=== PATIENT | female | born 1945 | race Caucasian/White ===

== ENCOUNTER 2023-11-16 11:57 | Emergency (ER) | payer MEDICARE, OTHER, SELFPAY ==
[2023-11-16] VITALS (34 sets, daily range): BP systolic 108–148; BP diastolic 53–86; PULSE 53–70; RESP 11–23; TEMP 36.5; O2SAT 82–99; BMI 25.8
--- NOTE | 2023-11-16 12:15 | EKG_ITS ---
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
--- NOTE | 2023-11-16 12:15 | DI.RAD.S_ITS ---
PROCEDURE: XR CHEST 1V INDICATIONS: chest pain TECHNIQUE: One view of the chest was acquired. COMPARISON: None. FINDINGS: Surgical changes and devices: None. Lungs and pleura: No dense consolidation or pleural effusion Low lung volumes Mediastinum: Normal heart size Bones and chest wall: Degenerative changes IMPRESSION: No acute radiographic abnormality. Low lung volumes. Limited single view study. Dictated by: Rodrigue Rae M.D. on 11/16/2023 at 13:36 Approved by: Rodrigue Rae M.D. on 11/16/2023 at 13:37
[2023-11-16 12:36] LABS: Hematocrit 29.9 % (36-46); Hemoglobin 9.6 g/dL (12.0-16.0); Mean Corpuscular HGB Conc 32.1 % (30-36); Mean Corpuscular Hemoglobin 30.1 PG (26-34); Mean Corpuscular Volume 93.6 fL (80-100); Platelet Count 157 X10^3/uL (150-400); Red Cell Distribution Width 16.4 % (11.6-14.8)
[2023-11-16 12:38] LABS: White Blood Cell Count 44.2 X10^3/uL (4.5-11.0)
[2023-11-16 12:39] LABS: Add Manual Diff / Slide Review YES
[2023-11-16 12:45] LABS: INR 1.1 (0.9-1.3); Prothrombin Time 12.6 SECONDS (9.4-12.5)
[2023-11-16 12:47] LABS: PTT Partial Thromboplastin Tim 39 SECONDS (25.1-36.5)
--- NOTE | 2023-11-16 12:51 | ED.FALL ---
HPI - Fall General Chief Complaint: Fall Stated Complaint: Syncopal Episode Time Seen by Provider: 11/16/23 12:05 Source: patient and EMS Mode of arrival: EMS History of Present Illness HPI Narrative: Patient is an 78-year-old female who arrives by EMS for evaluation of was initially described as a syncopal episode. Patient is visiting the local area. She stated that yesterday she spent quite a bit of time waiting in line for a [place] come in from [facility]. She stayed at a hotel last evening. He stated that for the past couple days she has had a upper respiratory tract infection like symptoms. No fevers. She states she was constipated. She recently had an extended course of Bactrim secondary to a unknown source of an infection that required her to be admitted to the hospital. Per report she did not check out of her hotel this morning. When the hotel staff came to check on her she had what appeared to be a presyncope/syncopal episode. She was found to be orthostatic by EMS. Received fluids. Upon my arrival she stated that she was feeling somewhat better. She denies chest pain, shortness of breath, lightheadedness. Prior to the event she was not having palpitations. Related Data Allergies Allergy/AdvReac Type Severity Reaction Status Date / Time Iodinated Contrast Media Allergy Intermediate Verified 11/16/23 12:55 Review of Systems Review of Systems ROS Unobtainable: All systems reviewed & are unremarkable except as noted in HPI and below Exam Initial Vital Signs Initial Vital Signs: Vital Signs Temperature 97.7 F 11/16/23 12:00 Pulse Rate 55 L 11/16/23 12:00 Respiratory Rate 16 11/16/23 12:00 Blood Pressure 115/56 L 11/16/23 12:00 Pulse Oximetry 96 11/16/23 12:00 Oxygen Delivery Method Room Air 11/16/23 12:00 Const General: cooperative, comfortable and No ill appearing [place] Head: normal to inspection and normocephalic Resp Effort & Inspection: normal respiratory effort Auscultation: clear to auscultation bilaterally Cardio Rate: regular rate Rhythm: regular rhythm GI Inspection: normal to inspection and non-distended Neuro General: patient alert, patient awake, patient oriented x3 and moves all extremities Extrem General: normal to inspection and capillary refill normal Course Orders Ordered: ED Orders 11/16/23 11:50 Lactate (Lactic Acid) Stat 11/16/23 11:58 Complete Blood Count AUTO DIFF Stat Comprehensive Metabolic Panel Stat Lipase Stat Magnesium Stat NT-proBNP (BNP-Adult 18+) Stat PTT Partial Thromboplastin Eris Stat Prothrombin Time INR Stat Troponin & CK Cardiac Panel Stat 11/16/23 12:15 XR chest 1V Stat EKG-12 Lead Stat 11/16/23 12:25 Respiratory Panel (Film Array) Stat 11/16/23 12:39 Urinalysis and Microscopic Stat Urine Culture Stat Discontinued Medications Sodium Chloride (Normal Saline 0.9%) 1,000 mls @ 1,000 mls/hr IV BOLUS ONE Stop: 11/16/23 13:50 Last Infusion: 11/16/23 14:12 Dose: Infused Documented By: Admin: 11/16/23 13:08 Dose: 1,000 mls/hr Documented By: BRANNON Sodium Biphosphate/Sodium Phosphate (Fleets Enema) 1 each WA NOW ONE Stop: 11/16/23 14:54 Last Admin: 11/16/23 16:18 Dose: 1 each Documented By: BRANNON Sodium Biphosphate/Sodium Phosphate (Fleets Enema) 1 each WA NOW ONE Stop: 11/16/23 17:23 Last Admin: 11/16/23 18:12 Dose: Not Given Documented By: BRANNON Vital Signs Vital signs: Vital Signs - 8 hr 11/16/23 12:00 11/16/23 12:12 11/16/23 12:15 Temperature 97.7 F Pulse Rate 55 L 56 L 56 L Respiratory Rate 16 18 15 Blood Pressure 115/56 L Pulse Oximetry 96 98 94 Oxygen Delivery Method Room Air 11/16/23 12:30 11/16/23 12:30 11/16/23 12:45 Temperature Pulse Rate 61 60 Respiratory Rate 17 Blood Pressure 108/62 Pulse Oximetry 98 Oxygen Delivery Method Room Air 11/16/23 13:00 11/16/23 13:01 11/16/23 13:01 Temperature Pulse Rate 58 L 59 L Respiratory Rate 17 21 Blood Pressure 113/53 L Pulse Oximetry 92 92 Oxygen Delivery Method 11/16/23 13:15 11/16/23 13:30 11/16/23 13:31 Temperature Pulse Rate 53 L 56 L Respiratory Rate 13 11 L Blood Pressure 134/63 Pulse Oximetry 94 97 Oxygen Delivery Method 11/16/23 13:31 11/16/23 13:45 11/16/23 14:00 Temperature Pulse Rate 55 L 55 L 55 L Respiratory Rate 12 12 12 Blood Pressure Pulse Oximetry 97 97 97 Oxygen Delivery Method 11/16/23 14:01 11/16/23 14:01 11/16/23 14:15 Temperature Pulse Rate 56 L 56 L Respiratory Rate 13 13 Blood Pressure 112/55 L Pulse Oximetry 97 97 Oxygen Delivery Method 11/16/23 14:22 11/16/23 14:22 11/16/23 14:31 Temperature Pulse Rate 56 L 57 L Respiratory Rate 19 Blood Pressure 125/62 Pulse Oximetry 92 Oxygen Delivery Method 11/16/23 14:31 11/16/23 14:45 11/16/23 15:00 Temperature Pulse Rate 53 L 58 L Respiratory Rate 16 21 Blood Pressure 120/58 L Pulse Oximetry 98 95 Oxygen Delivery Method 11/16/23 15:15 Temperature Pulse Rate 54 L Respiratory Rate 12 Blood Pressure Pulse Oximetry 97 Oxygen Delivery Method MDM - Fall Lab Data Attestation: I reviewed the patient's lab results. 11/16/23 11:58 11/16/23 11:58 Labs: Lab Results 11/16/23 11/16/23 11/16/23 Range/Units 11:50 11:58 12:25 WBC 44.2 H* (4.5-11.0) X10^3/uL RBC 3.20 L (4.0-5.2) X10^6/uL Hgb 9.6 L (12.0-16.0) g/dL Hct 29.9 L (36-46) % MCV 93.6 (80-100) fL MCH 30.1 (26-34) PG MCHC 32.1 (30-36) % RDW 16.4 H (11.6-14.8) % Plt Count 157 (150-400) X10^3/uL Neut % (Auto) Not Reportable Lymph % (Auto) Not Reportable [place] % (Auto) Not Reportable Eos % (Auto) Not Reportable Baso % (Auto) Not Reportable Lymph # (Auto) Not Reportable [place] # (Auto) Not Reportable Baso # (Auto) Not Reportable Total Counted 100 Seg Neutrophils % 2.0 L (38-70) % Lymphocytes % (Manual) 88.0 H (25-45) % Atypical Lymphs % 7.0 H ( - 0) % Monocytes % (Manual) 2.0 (2-11) % Eosinophils % (Manual) 1.0 L (2-4) % Neutrophils # (Manual) 884 L (0955-4344) /uL RBC Morphology Normal morphology PT 12.6 H (9.4-12.5) SECONDS INR 1.1 (0.9-1.3) APTT 39 H (25.1-36.5) SECONDS Sodium 130 L (137-145) mmol/L Potassium 4.3 (3.4-5.1) mmol/L Chloride 99 (98-107) mmol/L Carbon Dioxide 27 (22-32) mmol/L BUN 41 H (7-17) mg/dL Creatinine 1.22 H (0.52-1.04) mg/dL Estimated GFR 45 L (>60) mL/min BUN/Creatinine Ratio 33.6 H (6-22) Glucose 176 H (80-110) mg/dL Lactate 1.1 (0.7-2.1) mmol/L Calcium 8.4 (8.4-10.2) mg/dL Magnesium 1.9 (1.6-2.3) mg/dL Total Bilirubin 0.3 (0.2-1.3) mg/dL AST 35 (14-36) IU/L ALT 21 (<35) IU/L Alkaline Phosphatase 59 (38-126) U/L Total Creatine Kinase 101 (30-135) U/L Troponin I 0.012 (0.01-0.034) ng/mL NT-Pro-B Natriuret Pep 923 H (<450) pg/mL Total Protein 6.7 (6.3-8.2) g/dL Albumin 3.2 L (3.5-5.0) g/dL Globulin 3.5 (1.7-4.1) g/dL Albumin/Globulin Ratio 0.9 L (1.0-2.8) Lipase 62 (23-300) U/L Urine Color Urine Appearance Urine pH (4.5-8.0) Ur Specific [place] (1.000-1.035) Urine Protein (Negative) Urine Glucose (UA) (Negative) g/dL Urine Ketones (NEGATIVE) Urine Occult Blood (Negative) Urine Nitrate (Negative) Urine Bilirubin (NEGATIVE) Urine Urobilinogen (0.2) E.U./dL Ur Leukocyte Esterase (NEGATIVE) Urine RBC (0-5/HPF) Urine WBC (0-5/HPF) Ur Squamous Epith Cells (0-5/HPF) Urine Bacteria (None) Ur Culture Indicated? Vol Urine Centrifuged Chlamy pneumoniae PCR Not detected (Not Detect) Adenovirus (PCR) Not detected (Not Detect) B.parapertussis DNA PCR Not detected (Not Detecte) Coronavirus OC43 (PCR) Not detected (Not Detect) Coronavirus HKU1 (PCR) Not detected (Not Detect) Coronavirus 229E (PCR) Not detected (Not Detect) SARS-CoV-2 (PCR) Detected H (Not Detecte) Coronavirus NL63 (PCR) Not detected (Not Detect) Human Metapneumovir PCR Not detected (Not Detect) Influenza Type A (PCR) Not detected (Not Detect) Influenza Type B (PCR) Not detected (Not Detect) M. pneumoniae (PCR) Not detected (Not Detect) Parainfluenza 1 (PCR) Not detected (Not Detect) Parainfluenza 2 (PCR) Not detected (Not Detect) Parainfluenza 3 (PCR) Not detected (Not Detect) Parainfluenza 4 (PCR) Not detected (Not Detect) RSV (PCR) Not detected (Not Detect) Entero/Rhino (PCR) Not detected (Not Detect) 11/16/23 Range/Units 12:39 WBC (4.5-11.0) X10^3/uL RBC (4.0-5.2) X10^6/uL Hgb (12.0-16.0) g/dL Hct (36-46) % MCV (80-100) fL MCH (26-34) PG MCHC (30-36) % RDW (11.6-14.8) % Plt Count (150-400) X10^3/uL Neut % (Auto) Lymph % (Auto) [place] % (Auto) Eos % (Auto) Baso % (Auto) Lymph # (Auto) [place] # (Auto) Baso # (Auto) Total Counted Seg Neutrophils % (38-70) % Lymphocytes % (Manual) (25-45) % Atypical Lymphs % ( - 0) % Monocytes % (Manual) (2-11) % Eosinophils % (Manual) (2-4) % Neutrophils # (Manual) (5876-3247) /uL RBC Morphology PT (9.4-12.5) SECONDS INR (0.9-1.3) APTT (25.1-36.5) SECONDS Sodium (137-145) mmol/L Potassium (3.4-5.1) mmol/L Chloride (98-107) mmol/L Carbon Dioxide (22-32) mmol/L BUN (7-17) mg/dL Creatinine (0.52-1.04) mg/dL Estimated GFR (>60) mL/min BUN/Creatinine Ratio (6-22) Glucose (80-110) mg/dL Lactate (0.7-2.1) mmol/L Calcium (8.4-10.2) mg/dL Magnesium (1.6-2.3) mg/dL Total Bilirubin (0.2-1.3) mg/dL AST (14-36) IU/L ALT (<35) IU/L Alkaline Phosphatase (38-126) U/L Total Creatine Kinase (30-135) U/L Troponin I (0.01-0.034) ng/mL NT-Pro-B Natriuret Pep (<450) pg/mL Total Protein (6.3-8.2) g/dL Albumin (3.5-5.0) g/dL Globulin (1.7-4.1) g/dL Albumin/Globulin Ratio (1.0-2.8) Lipase (23-300) U/L Urine Color Yellow Urine Appearance Sl cloudy Urine pH 6.0 (4.5-8.0) Ur Specific [place] 1.020 (1.000-1.035) Urine Protein 1+ H (Negative) Urine Glucose (UA) Negative (Negative) g/dL Urine Ketones Negative (NEGATIVE) Urine Occult Blood 2+ H (Negative) Urine Nitrate Negative (Negative) Urine Bilirubin Negative (NEGATIVE) Urine Urobilinogen 0.2 (0.2) E.U./dL Ur Leukocyte Esterase 3+ H (NEGATIVE) Urine RBC 1-5/hpf (0-5/HPF) Urine WBC >100/hpf H (0-5/HPF) Ur Squamous Epith Cells 1-5 /hpf (0-5/HPF) Urine Bacteria Many (>30) H (None) Ur Culture Indicated? Specimen cultured Vol Urine Centrifuged 10ml (spun) Chlamy pneumoniae PCR (Not Detect) Adenovirus (PCR) (Not Detect) B.parapertussis DNA PCR (Not Detecte) Coronavirus OC43 (PCR) (Not Detect) Coronavirus HKU1 (PCR) (Not Detect) Coronavirus 229E (PCR) (Not Detect) SARS-CoV-2 (PCR) (Not Detecte) Coronavirus NL63 (PCR) (Not Detect) Human Metapneumovir PCR (Not Detect) Influenza Type A (PCR) (Not Detect) Influenza Type B (PCR) (Not Detect) M. pneumoniae (PCR) (Not Detect) Parainfluenza 1 (PCR) (Not Detect) Parainfluenza 2 (PCR) (Not Detect) Parainfluenza 3 (PCR) (Not Detect) Parainfluenza 4 (PCR) (Not Detect) RSV (PCR) (Not Detect) Entero/Rhino (PCR) (Not Detect) Imaging Data Chest x-ray: Radiologist's Impression: PROCEDURE: XR CHEST 1V INDICATIONS: chest pain TECHNIQUE: One view of the chest was acquired. COMPARISON: None. FINDINGS: Surgical changes and devices: None. Lungs and pleura: No dense consolidation or pleural effusion Low lung volumes Mediastinum: Normal heart size Bones and chest wall: Degenerative changes IMPRESSION: No acute radiographic abnormality. Low lung volumes. Limited single view study. ECG Data Attestation: I personally reviewed and interpreted this ECG as follows: Interpretation: Sinus bradycardia Ventricular rate of 53 First-degree AV block WA interval 240 milliseconds Normal QRS Normal axis No ST T wave changes MDM Narrative Medical decision making narrative: Patient had what appeared to be either a presyncopal/syncopal episode this morning. She states she has had a ?cold? for the past couple days. She was COVID positive which does explain her upper respiratory symptoms. She was orthostatic per EMS and was very lightheaded when she stood here in the ER. After fluids the symptoms improved. She does have leukocytosis but also has a history of CLL low suspicion for sepsis. Sinus bradycardia on the EKG. Chest x-ray is not consistent with pneumonia. Patient states she feels like she was constipated. Was given an enema. She was able to have a bowel movement. He was no indication for admission to the hospital. She was given return precautions. Discharge Plan Departure Patient Disposition: Home Clinical Impression: COVID-19 Instructions: DI for COVID-19 (Suspected or Confirmed ) Activity Restrictions/Additional Instructions: You were positive for COVID-19. Follow all current CDC guidelines with the guard to quarantine. Continue to take all of your medications as directed. Contact your primary doctor for a follow-up. Stand Alone Forms: Patient Portal/API
[2023-11-16 12:52] LABS: Alanine Aminotransferase 21 IU/L (<35); Albumin 3.2 g/dL (3.5-5.0); Albumin Globulin Ratio 0.9 (1.0-2.8); Alkaline Phosphatase 59 U/L (38-126); Aspartate Aminotransferase 35 IU/L (14-36); BUN Creatinine Ratio 33.6 (6-22); Bilirubin Total 0.3 mg/dL (0.2-1.3); Blood Urea Nitrogen 41 mg/dL (7-17); Calcium 8.4 mg/dL (8.4-10.2); Carbon Dioxide 27 mmol/L (22-32); Chloride 99 mmol/L (98-107); Creatine Kinase 101 U/L (30-135); Estimated Glomerular Filt Rate 45 mL/min (>60); Globulin 3.5 g/dL (1.7-4.1); Glucose 176 mg/dL (80-110); HEMOLYSIS < 15 (0-50); Lipase 62 U/L (23-300); Magnesium 1.9 mg/dL (1.6-2.3); Neutrophils Absolute Manual 884 /uL (3000-5900); Potassium 4.3 mmol/L (3.4-5.1); RBC Morphology Normal Morphology; Sodium 130 mmol/L (137-145); Total Cells Counted 100; Total Protein 6.7 g/dL (6.3-8.2)
[2023-11-16 13:03] LABS: NT-proBNP (BNP-Adult 18+) 923 pg/mL (<450); Troponin I 0.012 ng/mL (0.01-0.034)
[2023-11-16 13:06] LABS: Lactate (Lactic Acid) 1.1 mmol/L (0.7-2.1)
[2023-11-16] MEDS: SODIUM CHLORIDE 0.9% 1,000 ML 1000 ML IV (13:08)
[2023-11-16 13:19] LABS: Appearance Urine UA SL CLOUDY; Bilirubin Urine UA NEGATIVE (NEGATIVE); Color Urine UA YELLOW; Glucose Urine UA NEGATIVE (Negative); Ketones Urine UA NEGATIVE (NEGATIVE); Leukocyte Esterase Urine UA 3+ (NEGATIVE); Nitrite Urine UA NEGATIVE (Negative); Occult Blood Urine UA 2+ (Negative); Protein Urine UA 1+ (Negative); Urobilinogen Urine UA 0.2 E.U./dL (0.2)
[2023-11-16 13:29] LABS: Adenovirus Not Detected (Not Detect); B. parapertussis Not Detected (Not Detecte); Bordetella pertussis Not Detected (Not Detect); Chlamydophila pneumoniae Not Detected (Not Detect); Coronavirus 229E Not Detected (Not Detect); Coronavirus HKU1 Not Detected (Not Detect); Coronavirus NL 63 Not Detected (Not Detect); Coronavirus OC43 Not Detected (Not Detect); Human Metapneumovirus Not Detected (Not Detect); Human Rhinovirus/Enterovirus Not Detected (Not Detect); Influenza A Not Detected (Not Detect); Influenza B Not Detected (Not Detect); Mycoplasma pneumoniae Not Detected (Not Detect); Parainfluenza Virus 1 Not Detected (Not Detect); Parainfluenza Virus 2 Not Detected (Not Detect); Parainfluenza Virus 3 Not Detected (Not Detect); Parainfluenza Virus 4 Not Detected (Not Detect); Respiratory Syncytial Virus Not Detected (Not Detect)
[2023-11-16 13:31] LABS: SARS- CoV-2 Detected (Not Detecte)
[2023-11-16 13:44] LABS: RBC Urine 1-5/HPF (0-5/HPF); Urine Volume 10mL (spun)
[2023-11-16 13:45] LABS: Bacteria Urine Many (>30); Culture Indicated Urine Specimen Cultured; Squamous Epithelial Cell Urine 1-5 /HPF (0-5/HPF); WBC Urine >100/HPF (0-5/HPF)
--- NOTE | 2023-11-16 14:31 | PC.NURSE ---
Per provider direction to walk patient. She is steady on feet with FWW. Small, bright red drops noted on floor. This RN wipes patient and notices blood. Provider made aware.
[2023-11-16] MEDS: FLEETS ENEMA 1 EACH PR (16:18)
--- NOTE | 2023-11-16 17:20 | PC.NURSE ---
Addendum entered by Bree Diaz CNA 11/16/23 18:44: RUBY note: As I was getting patient to her vehicle, patient wanted me to get her blanket from the backseat of her car, she wanted me to move around items in her car so she could get her car organized before she left the hospital. She told me you left my shoes in the hospital. I need you to find them. I can't leave until I have my shoes. I said I would check. Patient saw a black trash bag in her car and said that was what the hotel lady left and her shoes were in there. Patient then expressed she didn't think she would be able to get into her car. I helped her get into the car. She wanted me to move her blanket to her front seat, her big black trash bag into the front seat and help getting comfortable in the seat. Multiple times I said I need to get back to my department. Patient then would express frustration and say well I can't leave until... I got her in the car and her car organized per her request. Patient is safe in her car. Original Note: RUBY note: Patient had call martinez in her hand. Patient used call martinez to call staff. Staff came in and patient said you were busy so I just pooped the bed. I cleaned patient up. Total bed change was done. Patient asked to be put on the commode. I put patient on the commode. Gave patient a call light. Patient called and then wanted me to tell the nurse I need another enema. I'm over the emergency part but I want another enema. I haven't pooped in 3 days. I just want a clean out. As I was getting patient back into bed patient said aren't you glad I wasn't the code blue? I didn't anything. Patient requested I need at least 3 blankets and 3 pillows. I explained to patient that I can see what I can find. Patient then said I need these to go to sleep. I brought patient blankets and 2 additional pillows. Explained that we need be conservative with supplies because I have a certain amount in the department. Patient said I know I'm picky, I just need things my way. I told propellant charge loader Keisha Turner, her nurse Isidra S. Patient took off oxygen saturation meter. I went to check on patient and she explained that she was leaving soon and she doesn't understand why she needed it on. Patient had a guest in the room, patient introduced me to guest saying she was the person that called 911. I said hi. Both patient and guest began to talk to me at the same time about what to expect next and I tried to explain that I don't know the timeline. Patient's guest said well this is a complicated situation and she can't go back to the hotel. I said I would look into it. As I was leaving patient's guest said I hate this emergency room. They don't care. I told JUJU Miner. Patient called again and said that she needs to go and her car is here and she has a place for the night and she would like to leave as soon as possible. I told her I would let her nurse know. Patient said then I know you don't know anything and can't do anything.
--- NOTE | 2023-11-16 18:23 | PC.NURSE ---
Provided with paper scrubs for discharge
== END 2023-11-16 18:22 | disposition home or self-care (01) ==
PROVIDERS: Emergency Provider Emergency Medicine
DX: U07.1 COVID-19 (principal); R07.9 Chest pain, unspecified; R00.1 Bradycardia, unspecified; I44.0 Atrioventricular block, first degree; K59.00 Constipation, unspecified
CPT/HCPCS: 36415; 51701; 71045; 80053; 81001; 82550; 83605; 83690; 83735; 83880; 84484; 85007; 85025; 85610; 85730; 87077; 87086; 87186; 87633; 93005; 96360; 99284